=== PATIENT | female | born 1990 | race Caucasian/White ===

== ENCOUNTER 2016-08-27 02:00 | Inpatient (IN) | payer BC ==
--- NOTE | ~2016-08-27 | FD ---
ADMIT: 08/27/2016 RM/LOC: 201 [facility] MR#: [id number] [address] ANUP HOWARD [address] [place] [address] Final Diagnosis SEX: F AGE: 26 : 1990 ADMISSION DATE: 08/27/2016 DISCHARGE DATE: 08/28/2016 FINAL DIAGNOSIS: 1. Term intrauterine at 39 weeks 5 days. 2. Active labor. 3. Group B strep positive. PROCEDURE: Spontaneous vaginal delivery. Shannan Mata MD/ pieter JOB #: [id number] CC: Jhonatan Hernandez MD, Attending Physician Ashley Hernandez MD, Family Physician
[~2016-08-27 02:00] MED LIST: MOTRIN-DPS800 MG PO; NIPPLECREAM TP; PRENATAL VIT1 TAB PO; TYLENOL #3 DPS1 TAB PO
[2016-08-29] MEDS ORDERED: COLACE-DPS100 MG PO (13:07)
[2016-08-29] MEDS ORDERED: DERMOPLAST SPRA56 GM TP (13:08)
[2016-08-29] MEDS ORDERED: TYLENOL EXTRA500 M1 PO (13:08)
[2016-08-29] MEDS ORDERED: TUCKS1 EACH TP (13:09)
[2016-08-29] MEDS ORDERED: LAN-O-SOOTHE7 GM TP (13:09)
--- NOTE | 2016-09-01 13:27 | OR ---
ADMIT: 08/27/2016 RM/LOC: 201 [facility] MR#: [id number] [address] ANUP HOWARD [address] [place] [address] Operative/Delivery Room Report SEX: F AGE: 26 : 1990 SURGERY DATE: 08/27/2016 SURGEON: Shannan Mata MD PREOPERATIVE DIAGNOSES: 1. Term intrauterine at 39-5/7th weeks. 2. Active labor. 3. Group B streptococcus positive. POSTOPERATIVE DIAGNOSES: 1. Term intrauterine at 39-5/7th weeks. 2. Active labor. 3. Group B streptococcus positive. PROCEDURE: Spontaneous vaginal delivery. FINDINGS: 1. Viable female with scores of 8 and 9 and a weight of 6 pounds 9.5 ounces. 2. Intact placenta with three-vessel cord. 3. First-degree perineal laceration, requiring repair. ANESTHESIA: None. ANTIBIOTICS: Penicillin. ESTIMATED BLOOD LOSS: 250 mL. INDICATIONS FOR PROCEDURE: This is a 26-year-old -0-0-1, who presents to Labor and Delivery at 39 weeks and 5/7th days in active labor. Her has been uncomplicated. She did have some slow progression into active phase of labor and was augmented with Pitocin. She did rupture spontaneously during this time. She progressed normally through labor and was found to be complete. She did get penicillin for GBS prophylaxis. DESCRIPTION OF PROCEDURE: With sterile drape under buttocks, head was ADMIT: 08/27/2016 RM/LOC: 201 [facility] MR#: [id number] [address] ANUP HOWARD [address] [place] [id number] Operative/Delivery Room Report SEX: F AGE: 26 : 1990 delivered over intact perineum. Nuchal cord was noted and infant was delivered through this, it was reduced after delivery. Infant was placed on the maternal chest. Delayed cord clamping was employed for 1 minute. Cord was then clamped and cut. Cord blood was obtained. Placenta then delivered spontaneously intact. It was noted to have a three-vessel cord. Lidocaine 1% without epinephrine was injected in the perineum. There was a small first degree laceration that was bleeding, this was repaired using 3-0 Vicryl in a running locked fashion. Sponge and instrument counts were correct x2. COMPLICATIONS: None. DISPOSITION: Mom stable in delivery room. Infant to nursery. Shannan Mata MD/ av JOB #: [id number] CC: Jhonatan Hernandez, Attending Physician Ashley Hernandez, Family Physician
--- NOTE | 2016-09-01 13:27 | HP ---
ADMIT: 08/27/2016 RM/LOC: 201 [facility] MR#: [id number] [id number] ANUP HOWARD [address] [place] [id number] History and Physical SEX: F AGE: 26 : 1990 DATE OF SERVICE: CHIEF COMPLAINT: Contractions. HISTORY OF PRESENT ILLNESS: This is a 26-year-old -0-0-1, who presents to Labor and Delivery at 39-5/7th weeks with an REGULO of 08/29/2016 by a 6-week ultrasound. Her has otherwise been uncomplicated. She complains of regular painful contractions and was found to have cervical change on serial cervical exams during triage. PAST MEDICAL HISTORY: None. PAST SURGICAL HISTORY: She had her wisdom tooth extraction and a mole removed on her foot. ALLERGIES: NO KNOWN DRUG ALLERGIES. MEDICATIONS: She is on vitamin daily. AND HISTORY: She is a -0-0-1. History of one vaginal delivery in 2014. OBSTETRIC LABORATORY DATA: Diabetes 1-hour Glucola screen was 89. Her hepatitis B surface antigen was negative. She is rubella immune. Blood type is A positive. Antibody screen was negative. HIV was negative. Gonorrhea and chlamydia testing was negative. Last hemoglobin was 11.1. She is up-to- date on her Pap smear. REVIEW OF SYSTEMS: Full review of systems was performed. The patient denies any fevers, chills, chest pain, shortness of breath, nausea, vomiting, or diarrhea. She does report contractions. Denies any loss of fluid. PHYSICAL EXAMINATION: VITAL SIGNS: Blood pressure is 115/73, pulse is 77, respirations 16, temperature is 97.5, she is 92% on room air. heart tones 130, moderate variability, positive accelerations, no decelerations noted. Her contractions are every 6 minutes. GENERAL: The patient is in no acute distress. HEART: Regular rate and rhythm. No murmurs, rubs, or gallops. LUNGS: Clear to auscultation bilaterally. ABDOMEN: Gravid with an estimated weight of 3200 g. Sterile cervical exam by Nursing shows cervix change from 5-6 at triage. Currently, sterile cervical exam is 7, 90, -2. There was no palpable bag, AROM, and fluids came but appears clear and bloody. EXTREMITIES: No edema. ADMIT: 08/27/2016 RM/LOC: 201 [facility] MR#: [id number] [address] [place] [address] History and Physical SEX: F AGE: 26 : 1990 ASSESSMENT AND PLAN: This is a 26-year-old -0-0-1, with an intrauterine at 39 weeks and 5/7th days. 1. Active labor. Anticipate normal spontaneous vaginal delivery. Risks, benefits, and alternatives of delivery were discussed with the patient. She understands risks to include bleeding, infection, injury to surrounding tissues, potential need for additional procedures including operative vaginal delivery and potential blood transfusion. 2. Group B Streptococcus positive. Penicillin is being used for prophylaxis. 3. Prolonged active phase. We will start Pitocin per protocol. 4. She is rhesus positive and rubella immune. Shannan Mata MD/ av JOB #: [id number] CC: Jhonatan Hernandez, Attending Physician Ashley Hernandez, Family Physician
== END 2016-08-28 16:15 | disposition home or self-care (01) | DRG 775 ==
LOC: 2LDRP 02:00 → BC 02:00 → 2LDRP 03:41 → BC 08-29 08:00
PROC: 0HQ9XZZ Repair Perineum Skin, External Approach (ICD-10-PCS; principal; 2016-08-27)
PROC: 10E0XZZ Delivery of Products of Conception, External Approach (ICD-10-PCS; principal; 2016-08-27)
DX: O99.824 Streptococcus B carrier state complicating childbirth (principal); O69.81X0 Labor and delivery complicated by cord around neck, without compression, not applicable or unspecified; O63.0 Prolonged first stage (of labor); O70.0 First degree perineal laceration during delivery; Z3A.39 39 weeks gestation of pregnancy; Z37.0 Single live birth